=== PATIENT | female | born 1970 | race Caucasian/White ===

== ENCOUNTER 2022-02-09 16:37 | Outpatient (REF) | payer OTHER, SELFPAY ==
[2022-02-09 21:47] LABS: HCT 40.1 % (36.0-46.0); HGB 13.9 g/dL (11.2-15.7); MCH 32.1 pg (27.0-33.0); MCHC 34.7 % (32.0-36.0); MCV 93 fL (80-95); Platelet Count 234 10^3/uL (130-400); RBC 4.33 10^6/uL (3.93-5.22); RDW 11.3 % (11.7-14.6); WBC 4.84 10^3/uL (4.4-10.8)
[2022-02-09 22:23] LABS: TSH 1.97 uIU/mL (0.36-3.74)
== END 2022-02-09 16:38 | disposition home or self-care (01) ==
LOC: NCHCN 16:37
PROVIDERS: Visit Provider Nurse Practitioner Family
DX: R00.2 Palpitations (principal)
CPT/HCPCS: 85027; 84443

== ENCOUNTER 2022-03-04 09:40 | Outpatient (REF) | payer OTHER, SELFPAY ==
[2022-03-04 16:36] LABS: Calculated LDL 123 mg/dL (<100); Cholesterol 192 mg/dL (<200); HDL Cholesterol 57 mg/dL (40-60); Triglyceride 64 mg/dL (<150)
== END 2022-03-04 09:41 | disposition home or self-care (01) ==
LOC: NCHCN 09:40
PROVIDERS: Visit Provider Nurse Practitioner Family
DX: Z00.00 Encounter for general adult medical examination without abnormal findings (principal); Z13.1 Encounter for screening for diabetes mellitus; Z13.220 Encounter for screening for lipoid disorders
CPT/HCPCS: 80061; 83036